=== PATIENT | female | born 1970 | race Caucasian/White ===

== ENCOUNTER 2022-04-16 17:53 | Emergency (ER) | payer OTHER ==
[~2022-04-16 17:53] MED LIST: ALLEGRA ALLERG180 MG PO; DITROPAN5 MG PO; HCTZ25 MG PO; KEFLEX250 MG PO; LEXAPRO20 MG PO; LIPITOR 10MG TA10 MG PO; MEDROL 4MG DOSEP4 MG PO; NORCO 5-325 TA1 EACH PO; SYNTHROID150 MCG PO; TAMOXIFEN CITRA10 MG PO; TESSALON PERLE100 MG PO; TRICOR145 MG PO; VENTOLIN HFA IN18 GM INH; VITAMIN D250 MC1 PO
[2022-04-16 18:19] LABS: BASOPHIL 0.2 % (0-2); EOSINOPHIL 0.5 % (0-5); HCT 42.7 % (37.0-47.0); HGB 14.9 g/dl (12.5-16.0); LYMPHOCYTE 4.2 % (15-48); MCH 32.1 pg (25.0-31.0); MCHC 34.9 g/dL (32.0-36.0); MONOCYTE 3.6 % (0-12); MPV 8.9 fL (6.0-9.5); NEUTROPHIL 90.9 % (41-80); NRBC 0; PLT 213 K/uL (150-400); RBC 4.64 M/uL (4.20-5.40); RDW 12.1 % (11.5-14.0)
[2022-04-16 18:37] LABS: WBC 10.7 K/uL (4.0-10.5)
[2022-04-16 18:38] LABS: ALBUMIN 4.1 g/dL (3.4-5.0); ALKALINE PHOSHATASE 47 U/L (46-116); ALT 24 U/L (14-59); AST 20 U/L (15-37); BILIRUBIN - TOTAL 0.7 mg/dL (0.2-1.0); BUN 22 mg/dL (7-18); BUN/CREAT RATIO (CALC) 24.4 RATIO; CHLORIDE 101 mmol/L (98-107); CO2 (BICARBONATE) 27 mmol/L (21-32); GLOBULIN (CALCULATION) 3.7 g/dL; GLUCOSE 115 mg/dL (74-106); POTASSIUM 3.1 mmol/L (3.5-5.1); TOTAL PROTEIN 7.8 g/dL (6.4-8.2)
[2022-04-16 21:23] LABS: BILIRUBIN 1+ mg/dL (NEGATIVE); BLOOD 2+ Ery/uL (NEGATIVE); CLARITY CLEAR (CLEAR); COLOR YELLOW (YELLOW); GLUCOSE (U) NORMAL (NORMAL); LEUKOCYTES NEGATIVE Leu/uL (NEGATIVE); NITRITE NEGATIVE (NEGATIVE); PROTEIN NEGATIVE (NEGATIVE); SPECIFIC GRAVITY 1.025 (1.001-1.030); UROBILINOGEN 0.2 mg/dL (0.2-1.0)
[2022-04-16 21:32] LABS: BACTERIA TRACE; URINARY WBC RARE
[2022-04-16 21:34] LABS: AMPHETAMINES NEGATIVE (NEGATIVE); BARBITURATES NEGATIVE (NEGATIVE); ECSTASY (MDMA) NEGATIVE (NEGATIVE); MARIJUANA (THC) NEGATIVE (NEGATIVE); METHADONE NEGATIVE (NEGATIVE); OPIATES NEGATIVE (NEGATIVE); OXYCODONE NEGATIVE (NEGATIVE)
[2022-04-16 21:58] LABS: INFLUENZA A NAA NEGATIVE (NEGATIVE)
[2022-04-16 22:00] LABS: CORONAVIRUS 2019 SARS-COV-2 POSITIVE (NEGATIVE)
[2022-04-16] MEDS ORDERED: LEVAQUIN750 MG PO (23:56)
[2022-04-16] MEDS ORDERED: DIFLUCAN 100MG100 MG PO (23:56)
== END 2022-04-17 00:15 | disposition home or self-care (01) ==
LOC: FER 17:53
PROVIDERS: Emergency Medicine
DX: N39.0 Urinary tract infection, site not specified (principal); R41.0 Disorientation, unspecified; U07.1 COVID-19; J45.909 Unspecified asthma, uncomplicated; Z88.2 Allergy status to sulfonamides; Z88.6 Allergy status to analgesic agent
CPT/HCPCS: 36415; 70450; 71045; 80053; 80305; 81001; 84484; 85025; 93005; J0696; J2405; J7030; U0002